=== PATIENT | female | born 1955 | race Caucasian/White ===

== ENCOUNTER 2018-06-13 07:39 | Inpatient (IN) ==
[2018-06-04 12:45] LABS: Appearance,Urine CLEAR; Bacteria,Urine FEW /hpf (0); Bilirubin,Urine NEG (NEG); Color,Urine STRAW; Glucose,Urine (UA) NEGATIVE (NEG); Leukocyte Esterase,Urine 25 /uL (NEG); Mucus,Urine FEW /hpf (0); Protein,Urine NEG (NEG); Specific Gravity,Urine 1.006 (1.000-1.035); Urine Amorphous Crystals FEW /hpf (0); Urine Blood NEG mg/dL (<0.03); Urine RBC 1 /hpf (0-1); Urine Squamous Epithelial Cell < 1 /hpf (0-4); Urine WBC 10 /hpf (0-4); Urobilinogen,Urine NEG (NEG)
[2018-06-04 13:13] LABS: Basophils # (Auto) 0 K/mcL (0.0-0.3); Basophils % (Auto) 0.5 % (0.0-2.0); Eosinophils # (Auto) 0 K/mcL (0.0-0.7); Eosinophils % (Auto) 0 % (0.0-7.0); Granulocytes % (Auto) 68.2 % (38.0-78.0); Lymphocytes # (Auto) 1.3 K/mcL (1.5-4.8); Lymphocytes % (Auto) 22.1 % (15.5-49.0); Mean Cell Volume 87.1 fL (80.0-100.0); Mean Corpuscular HGB Conc 33.6 g/dL (31.0-36.0); Mean Corpuscular Hemoglobin 29.2 pg (26.0-34.0); Monocytes # (Auto) 0.6 K/mcL (0.1-0.9); Monocytes % (Auto) 9.2 % (1.0-12.0); Platelet Count 213 K/mcL (140-440); RBC 4.39 M/mcL (4.00-5.20); Red Cell Distribution Width 14.1 % (11.5-14.5)
[2018-06-04 13:43] LABS: Blood Urea Nitrogen 15 mg/dl (8-23)
[~2018-06-13 07:39] MED LIST: CELECOXIB 200 MG CAPSULE PO SCH; GABAPENTIN 100 MG CAPSULE PO SCH; ceFAZolin 1 GM VIAL IV SCH; oxyCODONE 10 MG TAB.ER.12H PO SCH
[2018-06-13 09:19] LABS: Appearance,Urine CLEAR; Bilirubin,Urine NEG (NEG); Color,Urine YELLOW; Glucose,Urine (UA) NEGATIVE (NEG); Leukocyte Esterase,Urine NEG /uL (NEG); Protein,Urine NEG (NEG); Specific Gravity,Urine 1.017 (1.000-1.035); Urine Blood NEG mg/dL (<0.03); Urobilinogen,Urine NEG (NEG)
[2018-06-13] MEDS ORDERED: LIDOCAINE HCL/PF 100 MG/5 ML SYRINGE IV ONE (11:40)
[2018-06-13] MEDS ORDERED: TRANEXAMIC ACID 1,000 MG/10 ML VIAL IV ONE ×2 (11:40→13:10)
[2018-06-13] MEDS ORDERED: PROPOFOL 200 MG/20 ML VIAL IV ONE (11:40)
[2018-06-13] MEDS ORDERED: MIDAZOLAM 2 MG/2 ML VIAL IV ONE (11:40)
[2018-06-13] MEDS ORDERED: GLYCOPYRROLATE 0.2 MG/ML VIAL IV ONE (11:40)
[2018-06-13] MEDS ORDERED: KETAMINE 100 MG/ML ML IV ONE (11:40)
[2018-06-13] MEDS ORDERED: ONDANSETRON 4 MG/2 ML VIAL IV ONE (11:40)
[2018-06-13] MEDS ORDERED: PHENYLEPHRINE 10 MG/ML VIAL IV ONE (11:40)
[2018-06-13] MEDS ORDERED: HEPARIN 20,000 UNIT/ML VIAL IR ONE (12:26)
[2018-06-13] MEDS ORDERED: HEPARIN 10,000 UNIT/ML VIAL IR ONE (12:29)
[2018-06-13] MEDS ORDERED: PROMETHAZINE 25 MG/ML VIAL IV PRN (13:09)
[2018-06-13] MEDS ORDERED: fentaNYL 100 MCG/2 ML VIAL IV PRN (13:09)
[2018-06-13] MEDS ORDERED: MEPERIDINE 25 MG/ML SYRINGE IV PRN (13:09)
[2018-06-13] MEDS ORDERED: ONDANSETRON 4 MG/2 ML VIAL IV PRN ×2 (13:09→13:10)
[2018-06-13] MEDS ORDERED: ACETAMINOPHEN 1,000 MG/100 ML BOTTLE IV ONE (13:09)
[2018-06-13] MEDS ORDERED: IPRATROPIUM/ALBUTEROL 3 ML AMPUL.NEB NEB PRN (13:09)
[2018-06-13] MEDS ORDERED: METHOCARBAMOL 1,000 MG/10 ML VIAL IV PRN (13:09)
[2018-06-13] MEDS ORDERED: MAGNESIUM HYDROXIDE 30 ML ORAL.SUSP PO PRN (13:10)
[2018-06-13] MEDS ORDERED: POLYETHYLENE GLYCOL 3350 17 GM PACKET PO PRN (13:10)
[2018-06-13] MEDS ORDERED: BENZOCAINE/MENTHOL 1 LOZENGE PO PRN (13:10)
[2018-06-13] MEDS ORDERED: FLEETS ADULT ENEMA PR PRN (13:10)
[2018-06-13] MEDS ORDERED: BISACODYL 10 MG SUPP.RECT PR PRN (13:10)
[2018-06-13] MEDS ORDERED: oxyCODONE/APAP 5/325MG TABLET PO PRN (13:10)
--- NOTE | 2018-06-13 13:10 | Brief Operative Note ---
Date of procedure: 06/13/18 Pre-op diagnosis: Left hip AVN Post-op diagnosis: same Procedure: Left anterior total hip arthroplasty Grafts/Implants: Yes (Depuy Actis 3 std, +1 32 delta head, 50 cup, neutral liner ) Anesthesia: spinal, GLMA Findings: severe AVN of femoral head, diffuse osteopenia Complications: none Surgeon: Karsten Mcneill Consulting Services Associate: [place] Estimated blood loss (cc): 300 Specimens Removed/Pathology: none sent Condition: stable Disposition: PACU
[2018-06-13] MEDS ORDERED: LACTATED RINGERS 1,000 ML IV SCH (13:15)
--- NOTE | 2018-06-13 14:23 | XRay Report ---
CLINICAL INFORMATION: Post-Op Total Hip COMPARISON: None. FINDINGS: Left total hip prostheses is in near anatomically aligned. There is vague increased sclerosis within the superior right femoral head suspicious for avascular necrosis. SI joints are normal. Soft tissue swelling over the surgical site seen. IMPRESSION: Left total hip prostheses in near anatomic alignment. Suspect avascular necrosis in the right hip. Suggest coned AP and frog-leg oblique views for better evaluation Interpreted and Authenticated by: Abelardo Brooks 06/13/18
--- NOTE | 2018-06-13 14:50 | Operative Note ---
DATE OF OPERATION: 06/13/2018 PREOPERATIVE DIAGNOSIS: Left hip avascular necrosis. POSTOPERATIVE DIAGNOSIS: Left hip avascular necrosis. PROCEDURE PERFORMED: Left anterior total hip arthroplasty placing a DePuy Actis size 3 standard offset femoral stem, a +1 32 mm delta ceramic head ball with a 50 [place] cup and a neutral Altrx liner. SURGEON: Karsten Mcneill MD MANAGER HOME: Salo Palma PA-C. ANESTHESIA: Spinal plus general. DRAINS: None. SPECIMENS: Femoral head and fragments which were discarded. BLOOD LOSS: 300 mL COMPLICATIONS: None. POSTOPERATIVE CONDITION: Stable. INDICATIONS FOR SURGERY: This is a 62-year-old female who has a remote history of heavy alcohol abuse, who has since gotten sober, but has had worsening hip pain. Radiographs showed a femoral head collapse and I believe she even had an MRI showing avascular necrosis as well. FINDINGS AT SURGERY: Fragmented femoral head with severe AVN. She also had diffuse osteopenia. Post implantation showed good component position with leg length and offset equalization. PROCEDURE IN DETAIL: The patient had been seen preoperatively. Informed consent had been obtained after discussion of risks, benefits of surgery. Risks including, but not limited to, bleeding, possibly requiring transfusion; infection, possibly requiring implant removal and prolonged IV antibiotics; injury to nerves, blood vessels other surrounding structures; anesthetic risks, leg length discrepancy, dislocation; fracture; DVT and pulmonary embolus risks; and the possibility of needing further revision surgery. She understood these risks and wished to proceed. Correct operative site was marked and the patient was taken to the operating room after spinal anesthesia was given. She was carefully positioned on the fracture table and the left hip and groin were carefully prepped and draped in normal sterile fashion and a timeout was performed verifying patient name, operative site, and plan. Ioban was placed on skin surfaces and then a standard anterior approach incision was made with a scalpel through skin and subcutaneous tissue. Hemostasis was obtained with Bovie cautery. We then continued blunt dissection down onto the tensor fascia and undermined circumferentially. IrriSept was irrigated and a ring retractor placed. We incised the tensor fascia in line with the muscle fibers and then careful blunt dissection was taken medial to the muscle belly. Blunt cobra retractors were placed on the superior and inferior neck and then circumflex vessels were coagulated and cut. Anterior capsulectomy was performed and the blunt cobras were replaced intracapsular. We released capsule down to the lesser trochanter and out towards the greater. Cork screw was placed in the femoral head which was extremely soft and cartilage delaminated. We used an osteotome under fluoro to identify our neck cut trajectory and then oscillating saw was used to make our neck cut. We tried to lever the head out and due to the AVN the corkscrew came right out, so we redirected the corkscrew then up from the cut surface of the femoral neck into the head and this allowed us to lever this out. We then exposed the acetabulum and removed labrum and soft tissue as well as bone fragments. We then started reaming initially directly medializing and increased reamer size and angle until we thought a 49 had an adequate rim ream. We opened a 50, 3-hole [place] cup. We irrigated the acetabulum with IrriSept, after a minute pulse lavaged with saline. The [id number] was used to impact the cup at approximately 45 degrees of inclination and 25 degrees of anteversion. We did get pressfit, but due to her bone quality, we felt it would be prudent to place a screw, so we drilled in the posterior superior quadrant and then placed a 30 mm acetabular screw which did get good bone purchase. We placed a center hole cover and then a neutral Altrx liner was carefully aligned and impacted, carefully verified to be fully seated circumferentially. Traction was then removed from the leg and it was externally rotated. Capsule release was continued around the posterior neck and then the leg was extended and adducted. I released capsule out to the greater trochanter and then after we had exposure began with a box osteotome and awl to identify canal trajectory, rongeur and rasp to lateralize. She had extremely small proximal femur, so we did not use the [id number] and instead end broached up to a size 2. We trialled a standard offset neck with a +1 head ball. The hip reduced easily. AP pelvis was taken to verify neutral rotation and AP of the nonoperative and operative hips were overlaid. Leg length and offset appeared good; however, the femoral stem appeared undersized. I went ahead and redislocated. I was able to impact the two below our neck cut, so I went ahead and removed this and broached up to a 3 which did seat at our neck cut. Wewe opened a standard offset Actis stem. The femoral canal was irrigated with IrriSept, after a minute pulse lavaged with saline and the stem was impacted until the collar seated on the neck. We opened a +1 head ball. The stem was carefully cleaned and dried and the head ball was impacted with several blows of the mallet. Hip was reduced again with good tension and then another IrriSept irrigation done. Final fluoro images were taken and saved and then we pulse lavaged with saline after a minute. Tensor fascia was closed with running #1 Vicryls, one proximal and distal. Ring retractor was removed. IrriSept was irrigated again and after a minute final pulse lavage and then fat was tacked to fascia with Vicryl, 2-0 Monocryl used for subcutaneous and sherly for skin. Xeroform sterile dressings were applied. The patient was then transferred to [facility], extubated, and transferred to recovery in stable condition. [email or web address] Job ID: [id number] Doc ID: [id number] Karsten Mcneill MD
[2018-06-13] MEDS: 0.9 % SODIUM CHLORIDE 10 ML SYRINGE IV SCH ×2 (15:22→23:10)
[2018-06-13] MEDS: 0.9 % SODIUM CHLORIDE 1,000 ML IV SCH (15:22)
--- NOTE | 2018-06-13 19:09 | XRay Report ---
CLINICAL INFORMATION: LEFT TOTAL HIP ARTHROPLASTY-ANTERIOR. COMPARISON: None. FINDINGS: Multiple digital images from the OR show left total hip prostheses in anatomic alignment. No osseous abnormality. IMPRESSION: Negative Interpreted and Authenticated by: Abelardo Brooks 06/13/18
[2018-06-13] MEDS ORDERED: ATORVASTATIN 20 MG TABLET PO SCH (21:00)
[2018-06-13] MEDS ORDERED: SENNOSIDES 1 TABLET PO SCH (21:00)
[2018-06-13] MEDS: DOCUSATE SODIUM 100 MG CAPSULE PO SCH (21:40)
[2018-06-13] MEDS: CALCIUM W/VIT D3 500 MG TABLET PO SCH (21:40)
[2018-06-13] MEDS: GABAPENTIN 100 MG CAPSULE PO SCH (21:40)
[2018-06-13] MEDS: ASPIRIN 325 MG ENTERIC COATED TABLET PO SCH (21:40)
[2018-06-13] MEDS: KETOROLAC 15 MG/ML VIAL IV PRN (21:40)
[2018-06-13] MEDS: ceFAZolin 1 GM VIAL IV SCH (23:08)
[2018-06-14] MEDS: 0.9 % SODIUM CHLORIDE 1,000 ML IV SCH ×2 (00:02→13:11)
[2018-06-14] MEDS: KETOROLAC 15 MG/ML VIAL IV PRN (03:17)
[2018-06-14] MEDS: 0.9 % SODIUM CHLORIDE 10 ML SYRINGE IV SCH (04:55)
[2018-06-14] MEDS: ceFAZolin 1 GM VIAL IV SCH (05:02)
[2018-06-14] MEDS ORDERED: PANTOPRAZOLE 40 MG TABLET PO SCH (07:30)
--- NOTE | 2018-06-14 07:56 | Discharge Summary ---
Providers - Providers Patient information: Note initiated : 06/14/18 at 7:51 am Service Date, if different from initiated Date: [] Patient: Andi Canela 62 y/o F admitted on 06/13/18 for Left Total Hip Arthroplasty. Chief Complaint: [] Discharge date: 06/14/18 Hospitalization Hospital course: Pt was admitted for a NAOMY, Pt underwent the procedure the day of admission. Pt spent one night on the floor for IV pain meds, IV abx and PT. Discharged on post -op day 1. Will use ASA for DVT prophylaxis and attend out-pt PT. Discharge diagnosis: Left Hip OA Exam - Exam Clean and dry: Yes Weight bearing status: as tolerated Ortho Discharge - NAOMY - Patient Instructions Diet: Regular Diet Activity: activity as tolerated Total Hip Protocol: Follow activity instructions as provided by Physical Therapy. Dressing Care: May shower in 2 days - Follow Up Plan Disposition: Home, Self-Care Prognosis: Good Rehab Potential: Good Overall status at discharge: patient is progressing back to baseline - Orders For Discharge Prescriptions: Aspirin [Ecotrin] 325 mg PO BID #60 tab.ec HYDROcodone/ACETAMINOPHEN [[place] 10-325 Tablet] 1 - 2 each PO Q4-6HP PRN #90 tab PRN Reason: Pain Pending Studies Resuscitation Status Full Code Diet Regular Diet Start MonJun 13 1311 Aspirin (Ecotrin) 325 mg PO BID [facility] Last Admin: 06/13/18 21:40 Dose: 325 mg Atorvastatin Calcium (Lipitor) 20 mg PO HS [facility] Last Admin: 06/13/18 21:40 Dose: 20 mg Calcium/Vitamin D (Calcium W/Vit D3) 500 mg PO BID [facility] Last Admin: 06/13/18 21:40 Dose: 500 mg Docusate Sodium (Colace) 100 mg PO BID [facility] Last Admin: 06/13/18 21:40 Dose: 100 mg Gabapentin (Neurontin) 100 mg PO BID [facility] Last Admin: 06/13/18 21:40 Dose: 100 mg Sodium Chloride (Sodium Chloride 0.9%) 1,000 mls @ 100 mls/hr IV .Q10H [facility] Last Admin: 06/14/18 00:02 Dose: 100 mls/hr Infusion: 06/14/18 00:02 Dose: 100 mls/hr Admin: 06/13/18 15:22 Dose: 100 mls/hr Ketorolac Tromethamine (Toradol) 15 mg IV Q6HP PRN PRN Reason: Pain Stop: 06/15/18 13:12 Last Admin: 06/14/18 03:17 Dose: 15 mg Admin: 06/13/18 21:40 Dose: 15 mg Pantoprazole Sodium (Protonix) 40 mg PO QAMAC [facility] Last Admin: 06/14/18 07:34 Dose: 40 mg Senna (Senokot) 2 tab PO HS [facility] Last Admin: 06/13/18 21:40 Dose: 2 tab Sodium Chloride (Saline Flush) 10 ml IV Q8 [facility] Last Admin: 06/14/18 04:55 Dose: Not Given Admin: 06/13/18 23:10 Dose: Not Given Admin: 06/13/18 15:22 Dose: Not Given Shift Summary 06/13/18 15:04 Shift Summary by Becca Gruber Pt arrived back in her room at 1525, following a left NAOMY by Dr. Mcneill. She had a spinal block. VS are stable. She is satting 100% on RA. No complaints of pain. No PRN's given yet. Still has some tingling to bilat feet. She was bladderscanned in PACU for a prevoid scan of . She was straight cathed at 1547 for 500 mls. Tolerating ice chips and water without N/V. Left hip dressing is C/D/I. Initialized on 06/13/18 15:04 - END OF NOTE
[2018-06-14] MEDS ORDERED: MULTIVIT,THER IRON,CA,FA & MIN 1 TABLET PO SCH (09:00)
[2018-06-14] MEDS ORDERED: FISH OIL 1,000 MG CAPSULE PO SCH (09:00)
[2018-06-14] MEDS ORDERED: ASCORBIC ACID 500 MG TABLET PO SCH (09:00)
[2018-06-14] MEDS ORDERED: CYANOCOBALAMIN (VITAMIN B-12) 500 MCG TABLET PO SCH (09:00)
[2018-06-14] MEDS ORDERED: CITALOPRAM 20 MG TABLET PO SCH (09:00)
[2018-06-14] MEDS ORDERED: SPIRONOLACTONE 25 MG TABLET PO SCH (09:00)
[2018-06-14] MEDS: ASPIRIN 325 MG ENTERIC COATED TABLET PO SCH (09:13)
[2018-06-14] MEDS: CALCIUM W/VIT D3 500 MG TABLET PO SCH (09:13)
[2018-06-14] MEDS: DOCUSATE SODIUM 100 MG CAPSULE PO SCH (09:13)
[2018-06-14] MEDS: GABAPENTIN 100 MG CAPSULE PO SCH (09:13)
== END 2018-06-14 11:35 | disposition home or self-care (01) | DRG 470 ==
LOC: MEDSUR 07:39
PROVIDERS: ADMIT Orthopaedic Surgery; ATTEND Orthopaedic Surgery
CPT/HCPCS: 62322; 73502; 90686; 97161; C1713; C1776; J0131; J0690; J1644; J1885; J2001; J2250; J2370; J2405; J7030; J7120

== ENCOUNTER 2018-11-28 04:50 | Inpatient (IN) ==
[2018-11-23 12:03] LABS: Appearance,Urine CLEAR; Bacteria,Urine 0 /hpf (0); Bilirubin,Urine NEG (NEG); Color,Urine STRAW; Glucose,Urine (UA) NEGATIVE (NEG); Leukocyte Esterase,Urine NEG /uL (NEG); Protein,Urine NEG (NEG); Specific Gravity,Urine 1.005 (1.000-1.035); Urine Blood 0.2 mg/dL (<0.03); Urine RBC < 1 /hpf (0-1); Urine Squamous Epithelial Cell 1 /hpf (0-4); Urine WBC 3 /hpf (0-4); Urobilinogen,Urine NEG (NEG)
[2018-11-23 12:10] LABS: Estimated Average Glucose(eAG) 123 mg/dL; Hemoglobin A1C 5.9 % HGB (4.0-6.0)
[2018-11-23 12:11] LABS: Basophils # (Auto) 0 K/mcL (0.0-0.3); Basophils % (Auto) 0.6 % (0.0-2.0); Eosinophils # (Auto) 0 K/mcL (0.0-0.7); Eosinophils % (Auto) 0 % (0.0-7.0); Granulocytes % (Auto) 64.2 % (38.0-78.0); Lymphocytes # (Auto) 1.6 K/mcL (1.5-4.8); Lymphocytes % (Auto) 25.7 % (15.5-49.0); Mean Corpuscular HGB Conc 33.5 g/dL (31.0-36.0); Monocytes # (Auto) 0.6 K/mcL (0.1-0.9); Monocytes % (Auto) 9.5 % (1.0-12.0); Platelet Count 241 K/mcL (140-440); RBC 4.61 M/mcL (4.00-5.20); Red Cell Distribution Width 14.5 % (11.5-14.5)
[2018-11-23 12:19] LABS: Blood Urea Nitrogen 17 mg/dl (8-23)
[~2018-11-28 04:50] MED LIST changes: -CELECOXIB 200 MG CAPSULE PO SCH; -GABAPENTIN 100 MG CAPSULE PO SCH; +PREGABALIN 75 MG CAPSULE PO SCH; -ceFAZolin 1 GM VIAL IV SCH; -oxyCODONE 10 MG TAB.ER.12H PO SCH
[2018-11-28] MEDS ORDERED: PREGABALIN 75 MG CAPSULE PO SCH (06:00)
[2018-11-28] MEDS ORDERED: ceFAZolin 2 GM in DEXTROSE 5% IN WATER 50 ML IV SCH (06:00)
[2018-11-28] MEDS ORDERED: CELECOXIB 200 MG CAPSULE PO SCH (06:00)
[2018-11-28] MEDS ORDERED: oxyCODONE 10 MG TAB.ER.12H PO SCH (06:00)
[2018-11-28] MEDS ORDERED: HEPARIN 20,000 UNIT/ML VIAL IR ONE (06:58)
[2018-11-28] MEDS ORDERED: GLYCOPYRROLATE 0.2 MG/ML VIAL IV ONE (07:40)
[2018-11-28] MEDS ORDERED: KETAMINE 100 MG/ML ML IV ONE (07:40)
[2018-11-28] MEDS ORDERED: PHENYLEPHRINE 10 MG/ML VIAL IV ONE (07:40)
[2018-11-28] MEDS ORDERED: PROPOFOL 200 MG/20 ML VIAL IV ONE (07:40)
[2018-11-28] MEDS ORDERED: TRANEXAMIC ACID 1,000 MG/10 ML VIAL IV ONE ×2 (07:40→09:16)
[2018-11-28] MEDS ORDERED: DEXAMETHASONE 10 MG/ML VIAL IV ONE (07:40)
[2018-11-28] MEDS ORDERED: MIDAZOLAM 5 MG/5 ML VIAL IV ONE (07:40)
[2018-11-28] MEDS ORDERED: ONDANSETRON 4 MG/2 ML VIAL IV ONE (07:40)
[2018-11-28] MEDS ORDERED: LIDOCAINE HCL/PF 100 MG/5 ML SYRINGE IV ONE (07:40)
[2018-11-28] MEDS ORDERED: KETOROLAC 15 MG/ML VIAL IV PRN (08:17)
[2018-11-28] MEDS ORDERED: IPRATROPIUM/ALBUTEROL 3 ML AMPUL.NEB NEB PRN (08:17)
[2018-11-28] MEDS ORDERED: ONDANSETRON 4 MG/2 ML VIAL IV PRN ×2 (08:17→09:16)
[2018-11-28] MEDS ORDERED: fentaNYL 100 MCG/2 ML VIAL IV PRN (08:17)
[2018-11-28] MEDS ORDERED: MEPERIDINE 25 MG/ML SYRINGE IV PRN (08:17)
[2018-11-28] MEDS ORDERED: BENZOCAINE/MENTHOL 1 LOZENGE PO PRN ×2 (08:17→09:16)
[2018-11-28] MEDS ORDERED: METHOCARBAMOL 1,000 MG/10 ML VIAL IV PRN (08:17)
[2018-11-28] MEDS ORDERED: LACTATED RINGERS 250 ML IV PRN (08:17)
[2018-11-28] MEDS ORDERED: ACETAMINOPHEN 1,000 MG/100 ML BOTTLE IV ONE (08:17)
[2018-11-28] MEDS ORDERED: FLUMAZENIL 0.1 MG/ML ML IV PRN (08:17)
[2018-11-28] MEDS ORDERED: NALOXONE HCL 0.4 MG/ML VIAL IV PRN (08:17)
[2018-11-28] MEDS ORDERED: LACTATED RINGERS 1,000 ML IV SCH (08:30)
--- NOTE | 2018-11-28 09:15 | Brief Operative Note ---
Date of procedure: 11/28/18 Pre-op diagnosis: R hip AVN Post-op diagnosis: same Procedure: Right anterior total hip arthroplasty Grafts/Implants: Yes (Depuy Actis 3 std, +1.5 36 delta head, 52 cup, neutral liner) Anesthesia: spinal, GLMA Findings: severe head AVN Complications: none Surgeon: Karsten Mcneill Fountain Vending Mechanic: [place] Estimated blood loss (cc): 30 Specimens Removed/Pathology: none sent Condition: stable Disposition: PACU
[2018-11-28] MEDS ORDERED: BISACODYL 10 MG SUPP.RECT PR PRN (09:16)
[2018-11-28] MEDS ORDERED: MAGNESIUM HYDROXIDE 30 ML ORAL.SUSP PO PRN (09:16)
[2018-11-28] MEDS ORDERED: FLEETS ADULT ENEMA PR PRN (09:16)
[2018-11-28] MEDS ORDERED: POLYETHYLENE GLYCOL 3350 17 GM PACKET PO PRN (09:16)
[2018-11-28] MEDS ORDERED: KETOROLAC 30 MG/ML VIAL IV PRN (09:16)
--- NOTE | 2018-11-28 09:27 | XRay Report ---
CLINICAL INFORMATION: right total hip arthroplasty COMPARISON: None. FINDINGS: Digital images submitted from the OR show bilateral hip prostheses anatomically aligned. No osseous abnormality. IMPRESSION: Intraoperative findings as described Interpreted and Authenticated by: Abelardo Brooks 11/28/18
[2018-11-28] MEDS: 0.9 % SODIUM CHLORIDE 1,000 ML IV SCH ×2 (09:57→21:15)
--- NOTE | 2018-11-28 10:59 | Operative Note ---
DATE OF OPERATION: 11/28/2018 PREOPERATIVE DIAGNOSIS: Right hip avascular necrosis. POSTOPERATIVE DIAGNOSIS: Right hip avascular necrosis. PROCEDURE PERFORMED: Right anterior total hip arthroplasty with a DePuy Actis size 3 standard offset femoral stem; +1.5, 36 mm delta ceramic head ball; 52 [place] cup with a neutral Altrx liner. SURGEON: Karsten Mcneill M.D. IP ARCHITECT: Salo Palma PA-C. ANESTHESIA: Spinal plus general. DRAINS: None. SPECIMENS: Femoral head fragments which were discarded. BLOOD LOSS: 200 mL. POSTOPERATIVE CONDITION: Stable. INDICATIONS FOR SURGERY: This is a 63-year-old female who has history of heavy alcohol use and had bilateral hip avascular necrosis. She recently had her left total hip done with excellent result, and she wished to proceed on the right. FINDINGS AT SURGERY: A severely necrosed femoral head. Post implantation showed equal leg lengths and offset. PROCEDURE IN DETAIL: The patient had been seen preoperatively. Informed consent had been obtained after discussion of risks and benefits of surgery. Risks including, but not limited to, bleeding, possibly requiring transfusion; infection, possibly requiring implant removal and prolonged IV antibiotics; injury to nerves, blood vessels, and other surrounding structures; anesthetic risks; incomplete or no resolution of symptoms; leg length discrepancy; dislocation; fracture; DVT and pulmonary embolus risks; and the possibility of needing revision joint surgery. She understood and wished to proceed. Correct operative site was marked and then patient was taken to the operating room after spinal anesthesia was given. She was given LMA general and then placed on the fracture table. The right hip and groin were carefully prepped and draped in normal sterile fashion, and a time-out was performed verifying patient name, operative site, and plan. Ioban was used to cover all skin surfaces and a standard anterior approach incision was made with a scalpel through skin and subcutaneous tissue. Hemostasis was obtained with Bovie cautery and then careful blunt dissection taken down onto the tensor fascia. This was undermined circumferentially and then Irrisept was irrigated and a ring retractor placed. Tensor fascia was incised in line with the muscle fibers with a scalpel and then careful blunt dissection was taken medial to the muscle belly. Blunt cobra retractors placed on the superior and inferior neck and then circumflex vessels were coagulated and cut and vastus fascia split distally. A corkscrew was placed in the femoral head, and this caused it to fragment immediately due to the avascular necrosis. Osteotome was used under fluoro to identify the neck cut trajectory and then oscillating tip saw was used to make our osteotomy. We tried to lever the head out with a corkscrew but it just cut out, so we went ahead and used a rongeur to remove the fragments. We then exposed the acetabulum and labrum was excised circumferentially, as well as soft tissue from the floor. We started reaming, directly medializing to the tear drop increasing reamer size and angle. It took all the way to a 51 reamer to get some rim ream. We did trial a 49, but this was not able to get press-fit, so we opened a three-hole 52 cup. The acetabulum was irrigated with Irrisept. After waiting a minute, we pulse lavaged copiously with saline. The cup was then impacted with the [id number] at approximately 35 to 40 degrees of inclination and 25 to 30 degrees of anteversion. We did get excellent press-fit. A center hole cover was placed. We used a curved osteotome to remove anterior osteophyte and then a neutral AltrX liner was carefully aligned and impacted. Tabs were carefully verified to be fully seated. Traction was removed from the leg. It was externally rotated. Capsule was released around the medial and posterior neck and then the leg was extended and adducted. Bovie was used to release capsule out towards greater trochanter and then box osteotome was used to enter the canal. An awl was used to identify canal trajectory. [place] and rasp were used to lateralize. We then sequentially broached up to a size 3, which is what she had on the other side. We calcar planed down. A standard offset neck trial with a 1.5 head ball was placed. Hip was reduced without excessive tension. AP pelvis was taken to verify neutral rotation and AP of the nonoperative and operative legs were taken. X-rays were overlaid which showed symmetrical leg length and offset, so we went ahead and opened a 3 standard Actis stem. We redislocated and re-exposed the proximal femur and removed the trial. The femoral canal was irrigated with Irrisept. After a minute we pulse lavaged copiously with saline. The 3 Actis stem was impacted with the [id number] and seated onto the neck cut. A 36, 1.5 head ball was opened. The stem was carefully cleaned and dried, and the head ball was impacted with multiple blows briskly with the mallet. The hip was then reduced. Final fluoro images were taken. We irrigated with Irrisept, after a minute pulsed with saline. A #1 Vicryl two running stitches were used to close the tensor fascia. The ring was removed and then Irrisept irrigated again, and after a minute pulse lavaged with saline. Fat was tacked to fascia with Vicryl and then 2-0 Monocryl for subcutaneous and sherly for skin. Xeroform and sterile dressing were applied. The patient was then awakened, extubated, and transferred to recovery in stable condition. [email or web address] Job ID: [id number] Doc ID: [id number] Karsten Mcneill MD
--- NOTE | 2018-11-28 11:14 | XRay Report ---
CLINICAL INFORMATION: Post-op Total Hip COMPARISON: None. FINDINGS: Right total hip prostheses is in near-anatomic alignment with, perhaps, slightly more anteversion of the prosthetic acetabulum than typically seen. Left total hip prostheses remains anatomically aligned without loosening or infection. No osseous abnormalities. Soft tissue swelling over the surgical site seen in the expected IMPRESSION: The right total hip prostheses - as described Interpreted and Authenticated by: Abelardo Brooks 11/28/18
--- NOTE | 2018-11-28 11:20 | Brief Operative Note ---
Date of procedure: 11/28/18 Pre-op diagnosis: R knee DJD Post-op diagnosis: same Procedure: Right robotic assisted total knee arthroplasty Grafts/Implants: Yes (Moro Triathlon CR 2 femur, 2 tiba, 10mm insert, 31 patella) Anesthesia: spinal, GLMA Findings: severe arthritis Complications: none Surgeon: Karsten Mcneill Spacecraft Systems Engineer: [place] Estimated blood loss (cc): 30 Specimens Removed/Pathology: none sent Condition: stable Disposition: PACU
[2018-11-28] MEDS: 0.9 % SODIUM CHLORIDE 10 ML SYRINGE IV SCH ×2 (14:48→21:21)
[2018-11-28] MEDS: ceFAZolin 1 GM VIAL IV SCH ×2 (15:12→23:25)
[2018-11-28] MEDS: oxyCODONE/APAP 5/325MG TABLET PO PRN ×2 (17:03→21:20)
[2018-11-28] MEDS ORDERED: SENNOSIDES 1 TABLET PO SCH (21:00)
[2018-11-28] MEDS ORDERED: ATORVASTATIN 20 MG TABLET PO SCH (21:00)
[2018-11-28] MEDS ORDERED: GABAPENTIN 100 MG CAPSULE PO SCH (21:00)
[2018-11-28] MEDS: DOCUSATE SODIUM 100 MG CAPSULE PO SCH (21:20)
[2018-11-28] MEDS: CALCIUM W/VIT D3 500 MG TABLET PO SCH (21:20)
[2018-11-28] MEDS: ASPIRIN 325 MG ENTERIC COATED TABLET PO SCH (21:21)
[2018-11-28] MEDS ORDERED: ceFAZolin 1 GM VIAL ONE (23:22)
[2018-11-29] MEDS: oxyCODONE/APAP 5/325MG TABLET PO PRN (03:05)
[2018-11-29] MEDS: 0.9 % SODIUM CHLORIDE 10 ML SYRINGE IV SCH (05:27)
[2018-11-29] MEDS: 0.9 % SODIUM CHLORIDE 1,000 ML IV SCH (05:30)
[2018-11-29] MEDS ORDERED: PANTOPRAZOLE 40 MG TABLET PO SCH (07:30)
--- NOTE | 2018-11-29 07:37 | Discharge Summary ---
Providers - Providers Patient information: Note initiated : 11/29/18 at 7:35 am Service Date, if different from initiated Date: [] Patient: Andi Canela 63 y/o F admitted on 11/28/18 for Right Total Hip Arthroplasty. Chief Complaint: [] Discharge date: 11/29/18 Hospitalization Hospital course: Pt was admitted for a R NAOMY. Pt underwent the procedure on the day of admission. Pt spent one night on the floor for Iv pain meds, IV abx, and PT. Pt discharged on post-op day 1. Pt will take ASA for DVT prophylaxis. Will f/u at [facility] in 2 weeks. Discharge diagnosis: R hip AVN Exam - Exam Clean and dry: Yes Weight bearing status: as tolerated Ortho Discharge - NAOMY - Patient Instructions Diet: Regular Diet Activity: activity as tolerated Total Hip Protocol: Follow activity instructions as provided by Physical Therapy. Dressing Care: May shower in 2 days - Follow Up Plan Follow Up Appointments: [place] PA-C [Physician Composition Stone Applicator] - 12/13/18 10:00 am Disposition: Home, Self-Care Prognosis: Good Rehab Potential: Good Overall status at discharge: patient is back to baseline - Orders For Discharge Prescriptions: Aspirin [Ecotrin] 325 mg PO BID #60 tab.ec HYDROcodone/ACETAMINOPHEN [[place] 10-325 Tablet] 1 - 2 tab PO Q4-6HP PRN #75 tab PRN Reason: Pain Pending Studies Resuscitation Status Full Code Diet Regular Diet Start MonNov 28 09 Aspirin (Ecotrin) 325 mg PO BID [facility] Last Admin: 11/28/18 21:21 Dose: 325 mg Documented by: BRIAN Atorvastatin Calcium (Lipitor) 20 mg PO [facility] Last Admin: 11/28/18 21:20 Dose: 20 mg Documented by: BRIAN Calcium/Vitamin D (Calcium W/Vit D3) 500 mg PO BID [facility] Last Admin: 11/28/18 21:20 Dose: 500 mg Documented by: BRIAN Docusate Sodium (Colace) 100 mg PO BID [facility] Last Admin: 11/28/18 21:20 Dose: 100 mg Documented by: BRIAN Gabapentin (Neurontin) 100 mg PO [facility] Last Admin: 11/28/18 21:21 Dose: 100 mg Documented by: BRIAN Sodium Chloride (Sodium Chloride 0.9%) 1,000 mls @ 100 mls/hr IV .Q10H [facility] Last Admin: 11/29/18 05:30 Dose: Not Given Documented by: Admin: 11/28/18 21:15 Dose: 100 mls/hr Documented by: Admin: 11/28/18 09:57 Dose: Not Given Documented by: [email or web address] Oxycodone/Acetaminophen (Percocet 5-325 Mg) 0 tab PO Q4HP PRN PRN Reason: PAIN LEVEL 3-6 Last Admin: 11/29/18 03:05 Dose: 1 tab Documented by: Admin: 11/28/18 21:20 Dose: 1 tab Documented by: Admin: 11/28/18 17:03 Dose: 1 tab Documented by: SEBASTIAN [place]illon (Senokot) 2 tab PO HS [facility] Last Admin: 11/28/18 21:20 Dose: 2 tab Documented by: BRIAN Sodium Chloride (Saline Flush) 10 ml IV Q8 [facility] Last Admin: 11/29/18 05:27 Dose: 10 ml Documented by: Admin: 11/28/18 21:21 Dose: Not Given Documented by: Admin: 11/28/18 14:48 Dose: Not Given Documented by: SEBASTIAN Shift Summary 11/29/18 04:04 Shift Summary by Manuel Bejarano Pt has rested fairly well - currently awake reading. RT hip pain well controlled - Perc 5 (1) PO given last @ 0305 - she has declined need for Ice Pk all shift. Pt has been up AMB to & from [facility], as well as out in [place] x1 - gait stable w/ FWW & SBA. Dressing RT ANT hip showing 2x very sm areas of shadow - no change since that time - Dsng dry & intact. NS infusing to her LT wrist @ 100ml/hr - sl redness @ site - non-tender. She is voiding QS. VS - H.R. & B/P running sl low - all else WNL on R.A.. Pt is A&O x4, calm, pleasant, & cooperative. She hopes to D/C to home later today. Initialized on 11/29/18 04:04 - END OF NOTE
[2018-11-29] MEDS: CALCIUM W/VIT D3 500 MG TABLET PO SCH (08:36)
[2018-11-29] MEDS: ASPIRIN 325 MG ENTERIC COATED TABLET PO SCH (08:36)
[2018-11-29] MEDS: DOCUSATE SODIUM 100 MG CAPSULE PO SCH (08:36)
[2018-11-29] MEDS ORDERED: MULTIVIT,THER IRON,CA,FA & MIN 1 TABLET PO SCH (09:00)
[2018-11-29] MEDS ORDERED: FISH OIL 1,000 MG CAPSULE PO SCH (09:00)
[2018-11-29] MEDS ORDERED: CITALOPRAM 20 MG TABLET PO SCH (09:00)
[2018-11-29] MEDS ORDERED: SPIRONOLACTONE 25 MG TABLET PO SCH (09:00)
== END 2018-11-29 10:25 | disposition home or self-care (01) | DRG 470 ==
LOC: MEDSUR 04:50
PROVIDERS: ADMIT Orthopaedic Surgery; ATTEND Orthopaedic Surgery